=== PATIENT | female | born 1970 | race Hispanic/Latino ===

== ENCOUNTER → 2024-03-22 | Day surgery (SDC) | payer OTHER ==
[~2024-03-22] MED LIST: DEXMEDETOMIDINE HCL 200 MCG/2 ML VIAL ONE; LIDOCAINE HCL 2% LOCAL INJ 5 ML SDV VIAL INJ ONE; PROPOFOL IV EMULSION 10 MG/ML 20 ML VIAL ONE; PROPOFOL IV EMULSION 10 MG/ML 50 ML VIAL IV ONE
[2024-03-22] MEDS: LACTATED RINGER'S 1,000 ML ONE (10:56)
[2024-03-22 14:06] VITALS: TEMP 97.3
[2024-03-22 14:30] VITALS: BP 123/66; PULSE 73; RESP 18; O2SAT 99
== END | disposition home or self-care (01) ==
LOC: OR 08:00
PROVIDERS: ATTEND Internal Medicine Gastroenterology
DX: Z12.11 Encounter for screening for malignant neoplasm of colon (principal); K64.8 Other hemorrhoids; F41.9 Anxiety disorder, unspecified; A04.8 Other specified bacterial intestinal infections
CPT/HCPCS: 45378; 93005; J2003; J2704 ×2; J7121